=== PATIENT | male | born 1990 | race Caucasian/White ===

== ENCOUNTER 2016-04-29 23:10 | Emergency (ER) | payer SELFPAY ==
[2016-04-29 23:18] VITALS: TEMP 98.1
--- NOTE | 2016-04-30 00:31 | EDPHY ---
General - History Smoking Status: Heavy smoker Narrative: CHIEF COMPLAINT: Hockey puck to face, laceration HISTORY OF PRESENT ILLNESS: playing hockey when at 7:30 p.m. he took a hockey puck to the right cheek. He sustained a superficial laceration that was contained with pressure and butterfly closures there. He continued to play the game. He had no headache or loss of conscious. No neck pain or stiffness. No chest pain or shortness of breath. No injuries elsewhere. He has no difficulty with vision. He has no diplopia. mild to moderate pain at the site. No other associated complaint s or modifying factors. Eyes: Pupils equal and round, no conjunctival pallor or injection ENT, Mouth: Mucous membranes moist Neck: Normal inspection, supple, non-tender Respiratory: Lungs are clear to auscultation Cardiovascular: Regular rate and rhythm Gastrointestinal: Abdomen is soft and nontender Back: non-tender, no bony abnormalities Neurological: A&O, nonfocal, normal gait Skin: Warm and dry, no rash . There is a 1.5 cm laceration to the right cheek. No bleeding. No foreign body. Extremities: Nontender, no pedal edema Psychiatric: Mood and affect normal DIFFERENTIAL DIAGNOSES: Including but not limited to Blunt trauma, laceration, contusion, hematoma, facial fracture MDM: 11:55 p.m. blunt trauma with a hockey puck to the right cheek. There is no eye tenderness or pain. No diplopia with upward outward gaze or downward gaze. He has no eye pain or headache. Only has laceration of the cheek. I have anesthetized the wound. We will clean the wound and plan for suture repair. He has declined any imaging or tetanus update. His last tetanus was approximately 8 years ago. 12:30 a.m. blunt trauma to the face with laceration. I have anesthetized, irrigated and closed the wound myself. No complications. Good approximation of the wound borders. We discussed imaging of the facial bones and CT head, but I do not feel that he meets criteria for this. He has no severe headache, actually no headache at all. He has no diplopia with upward gaze. He has no changes in vision at rest. He has no nausea or vomiting. He does not meet criteria for CT head or facial wound at this time. Discharged home with wound care instructions as discussed. And return to the emergency department for suture removal in 5-7 days. Return sooner for signs of infection as discussed. Also return to the emergency department should he develop any of the above symptoms that he does not have at this time. PROCEDURE: Laceration repair Consent: Verbal Location: Right cheek Length of repair: 1.5 cm Complexity: simple Layer involvement: single Anesthesia: local, 1% lidocaine plain, 0.25% Marcaine with epinephrine 2 mL of each Irrigation: Extensive Debridement: none Procedure description: after anesthesia the wound was irrigated copiously. The wound bed was explored and there was no foreign body. Wound was approximated with 6-0 Ethilon, 4 simple interrupted sutures without complication. Good approximation of wound borders. Good hemostasis. Suture/Staple material: 6-0 Ethilon, 4 simple interrupted sutures Wound care: Routine as discussed Suture/Staple removal: Days SUPERVISION: This patient was independently evaluated without the aide of supervising physician. (Juanpablo Madrid) Medical Decision Making: PHYSICIAN DOCUMENTATION: The patient was evaluated and managed by the Physician [employer]. My co- signature indicates that I have reviewed this chart and I agree with the findings and plan of care as documented. I am the secondary supervising physician. (Maria Victoria Jurado) - Objective Vital Signs: Initial Vital Signs Temperature (C) 98.1 F 04/29/16 23:16 Heart Rate 89 04/29/16 23:16 Respiratory Rate 20 04/29/16 23:16 Blood Pressure 134/82 H 04/29/16 23:16 O2 Sat (%) 96 04/29/16 23:16 O2 Delivery Mode Room Air Allergies/Adverse Reactions: No Known Allergies Allergy (Unverified 04/29/16 23:15) Home Medications: Medication Instructions Recorded NK [No Known Home Meds] 04/29/16 Departure - Departure Disposition: Home, Routine, Self-Care Clinical Impression: Facial laceration Condition: Good Instructions: Care For Your Stitches (ED), Laceration (ED), Head Injury (ED) Additional Instructions: Follow-up here in the ER in 5-7 days for suture removal. Wound care as discussed daily. Return to the ER for signs or symptoms of infection. Return to ER for any headache, changes in vision, diplopia, nausea or vomiting Referrals: NONE *PRIMARY CARE P,. [Primary Care Provider] - As per Instructions Kay Brar MD [Medical Doctor] - As per Instructions
[2016-04-30 00:44] VITALS: BP 137/73; PULSE 76; RESP 18; O2SAT 97
== END 2016-04-30 00:44 | disposition home or self-care (01) ==
PROC: 0HQ1XZZ Repair Face Skin, External Approach (ICD-10-PCS; principal; 2016-04-29)
DX: S01.411A Laceration without foreign body of right cheek and temporomandibular area, initial encounter (principal); W21.221A Struck by field hockey puck, initial encounter; Y92.39 Other specified sports and athletic area as the place of occurrence of the external cause; Y93.65 Activity, lacrosse and field hockey